=== PATIENT | female | born 1995 | race Caucasian/White ===

== ENCOUNTER 2019-01-12 13:00 | Emergency (ER) | payer OTHER ==
[~2019-01-12] VITALS: Ht 162.6 cm; Wt 81.7 kg
[2019-01-12 13:22] LABS: URINE BILIRUBIN NEGATIVE (Negative); URINE BLOOD NEGATIVE (Negative); URINE CLARITY CLEAR; URINE COLOR YELLOW; URINE GLUCOSE-RANDOM NEGATIVE (Negative); URINE KETONES NEGATIVE (Negative); URINE LEUKOCYTES-REFLEX NEGATIVE (Negative); URINE NITRITE-REFLEX NEGATIVE (Negative); URINE PROTEIN NEGATIVE (Negative); URINE SPECIFIC GRAVITY 1.025 (1.005-1.030); URINE UROBILINOGEN 0.2 E.U./dl (0.2-1.0)
[2019-01-12 13:52] VITALS: BP 125/80
== END 2019-01-12 13:53 | disposition home or self-care (01) ==
LOC: M.ERS 13:00
PROVIDERS: Nurse Practitioner Family
DX: N89.8 Other specified noninflammatory disorders of vagina (principal); E28.2 Polycystic ovarian syndrome; Z88.0 Allergy status to penicillin; Z88.1 Allergy status to other antibiotic agents